=== PATIENT | male | born 1930 | race Caucasian/White ===

== ENCOUNTER → 2018-04-29 | Outpatient (CLI) | payer MEDICARE ==
[2015-11-30 11:13] VITALS: BMI 25.1
[~2018-04-29] MED LIST: ASPI81TA94 PO; CLOP75TA PO; FERR-53 PO; FURO-45 PO; LANS15CA32 PO; LISI2.5T60 PO; LOR5/325 PO; METO25TA23 PO; PRAV40TA78 PO; VALA100062 PO; no routine meds
--- NOTE | 2018-04-29 12:49 | RADIOLOGY IMAGING REPORT ---
FACILITY: [facility] - [place] PATIENT NAME: Rickey Snyder : 1930 MR: [id number] V: [id number] EXAM DATE: ORDERING PHYSICIAN: BORIS MARTINEZ TECHNOLOGIST: Location: [facility] - [place] Patient: Rickey Snyder : 1930 Visit/Account:[id number] Date of Sevice: 04/29/2018 2 VIEWS CHEST INDICATION: Evaluate for pneumonia, cough. COMPARISON: X-ray examination 07/20/2016 FINDINGS: There is a 3-lead left hemithorax pacer defibrillator. There is mild pulmonary hyperinflation without superimposed failure, infiltrate, effusion or pneumoth orax. No acute bony finding. IMPRESSION: 1. Pulmonary hyperinflation without acute finding Report Dictated By: Rk Rogel MD at 04/29/2018 12:45 PM Report E-Signed By: Rk Rogel MD at 04/29/2018 12:46 PM WSN:[email or web address]
== END ==
LOC: RAD 11:31
PROVIDERS: ATTEND Internal Medicine Cardiovascular Disease
DX: R91.8 Other nonspecific abnormal finding of lung field (principal); Z95.810 Presence of automatic (implantable) cardiac defibrillator
CPT/HCPCS: 71046

== ENCOUNTER 2019-01-08 14:36 | Emergency (ER) | payer OTHER, MEDICARE ==
[2015-11-30 11:13] VITALS: Wt 74.8 kg
--- NOTE | 2019-01-08 15:00 | ER Report ---
History and Physical Time Seen By MD: 15:00 HPI/ROS CHIEF COMPLAINT: low blood sugar, passed out while at [facility] HISTORY OF PRESENT ILLNESS: Patient is a 88 year old male presenting to the ED after passing out at [facility]. Patient was found to be wondering around the outside of [facility]. A bystander assisted the patient back inside. 911 was called. The ambulance found his blood sugar to be 60. Patient received some orange juice and sugar. Patient refused transport to the hospital. Patient came to the ED via personal car. Patient has abrasions on his left elbow and left shoulder. REVIEW OF SYSTEMS: Respiratory: No cough, no dyspnea. Cardiovascular: No chest pain, no palpitations. Gastrointestinal: No vomiting, no abdominal pain. Musculoskeletal: No back pain. Some pain to left elbow and left shoulder. Allergies: Coded Allergies: No Known Drug Allergies (Unverified , 02/21/16) Home Meds Reported Medications Lansoprazole (LANSOPRAZOLE) 15 Mg Capsule.dr, 30 MG PO QDAY 02/21/16 Ferrous Sulfate (FERROUS SULFATE) 325 Mg Tablet, 325 MG PO BID 02/21/16 Pravastatin Sodium (PRAVASTATIN SODIUM) 40 Mg Tablet, 40 MG PO DAILY 07/04/15 Lisinopril (LISINOPRIL) 2.5 Mg Tablet, 2.5 MG PO QDAY 07/04/15 Metoprolol Succinate (METOPROLOL SUCCINATE) 25 Mg Tab.er.24h, 1 TAB PO QDAY, TAB 07/04/15 Past Medical/Surgical History Patient has a past medical history of cardiac disease, GI bleed, torn right rotator cuff, arthritis, arm fracture at age 7, diabetes, and hernia. Patient araiza s a surgical history of siatic nerve surgery, right rotator cuff surgery, colonoscopy, hernia repair, CABG, and coronary stents Reviewed Nurses Notes: Yes Hx Smoking: No Smoking Status: Never Smoker Hx Substance Use Disorder: No Hx Alcohol Use: No Constitutional Vital Sign - Last 24 Hours 01/08/19 01/08/19 01/08/19 01/08/19 14:36 14:42 14:51 15:00 Temp 96.6 Pulse 66 65 Resp 14 B/P (MAP) 106/84 (91) 104/84 110/84 (93) Pulse Ox 92 O2 Delivery Room Air 01/08/19 01/08/19 15:06 16:00 Pulse 63 Resp 15 B/P (MAP) 135/60 (85) Pulse Ox 94 Physical Exam General Appearance: The patient is alert, has no immediate need for airway protection and no current signs of toxicity. Eyes: Pupils equal and round no injection. Respiratory: Chest is non tender, lungs are clear to auscultation. Cardiac: Rate irregular with occasional paced beats Gastrointestinal: Abdomen is soft and non tender, no masses, bowel sounds normal. Musculoskeletal: Neck: Neck is supple and non tender. Extremities have full range of motion and are non tender. Left shoulder and elbow tender to palpitation. Skin: 2 cm x 2 cm abrasion to left elbow. Small abrasion on left shoulder and upper arm. DIFFERENTIAL DIAGNOSIS: After history and physical exam differential diagnosis was considered for elbow fracture, hematoma, hypoglycemia. Medical Decision Making Data Points Result Diagram: 01/08/19 1512 01/08/19 1512 Laboratory Hematology Test 01/08/19 15:12 01/08/19 16:14 01/08/19 17:23 Red Blood Count 4.61 M/uL (4.00-5.60) Mean Corpuscular Volume 97.5 fL (80.0-96.0) Mean Corpuscular Hemoglobin 32.1 pg (26.0-33.0) Mean Corpuscular Hemoglobin Concent 33.0 g/dL (32.0-36.0) Red Cell Distribution Width 14.3 % (11.5-14.5) Mean Platelet Volume 9.2 fL (7.2-11.1) Neutrophils (%) (Auto) 82.4 % (39.4-72.5) Lymphocytes (%) (Auto) 13.3 % (17.6-49.6) Monocytes (%) (Auto) 3.6 % (4.1-12.4) Eosinophils (%) (Auto) 0.3 % (0.4-6.7) Basophils (%) (Auto) 0.4 % (0.3-1.4) Nucleated RBC Relative Count (auto) 0.0 /100WBC Neutrophils # (Auto) 11.9 K/uL (2.0-7.4) Lymphocytes # (Auto) 1.9 K/uL (1.3-3.6) Monocytes # (Auto) 0.5 K/uL (0.3-1.0) Eosinophils # (Auto) 0.0 K/uL (0.0-0.5) Basophils # (Auto) 0.1 K/uL (0.0-0.1) Nucleated RBC Absolute Count (auto) 0.01 K/uL Prothrombin Time 14.0 seconds (12.0-14.4) Prothromb Time International Ratio 1.07 Activated Partial Thromboplast Time 29 seconds (23-35) Sodium Level 143 mmol/L (137-145) Potassium Level 3.6 mmol/L (3.5-5.0) Chloride Level 109 mmol/L (98-107) Carbon Dioxide Level 24 mmol/L (22-30) Blood Urea Nitrogen 29 mg/dl (9-21) Creatinine 1.60 mg/dl (0.66-1.25) Glomerular Filtration Rate Calc 41.2 Random Glucose 118 mg/dl (75-110) Calcium Level 8.9 mg/dl (8.4-10.2) Total Bilirubin 1.2 mg/dl (0.2-1.3) Aspartate Amino Transf (AST/SGOT) 27 U/L (0-35) Alanine Aminotransferase (ALT/SGPT) 27 U/L (0-56) Alkaline Phosphatase 83 U/L (0-126) Total Protein 8.3 g/dl (6.3-8.2) Albumin 4.7 g/dl (3.5-5.0) Urine Color Yellow Urine Clarity Clear Urine pH 5.0 pH (4.8-9.5) Urine Specific Warren 1.017 Urine Protein Negative mg/dL (NEGATIVE) Urine Glucose (UA) Negative mg/dL (NEGATIVE) Urine Ketones Trace mg/dL (NEGATIVE) Urine Blood Negative (NEGATIVE) Urine Nitrite Negative (NEGATIVE) Urine Bilirubin Negative (NEGATIVE) Urine Urobilinogen Negative mg/dL (0.2-1.9) Urine Leukocyte Esterase Negative (NEGATIVE) Urine RBC <1 /HPF (0-2/HPF) Urine WBC 4 /HPF (0-5/HPF) Urine Squamous Epithelial Cells None /LPF (</=FEW) Urine Bacteria Negative /HPF (NONE-FEW) Urine Mucus None /HPF (NONE-FEW) Whole Blood Glucose 131 mg/DL (75-110) Chemistry Test 01/08/19 15:12 01/08/19 16:14 01/08/19 17:23 White Blood Count 14.4 k/uL (4.5-11.0) Red Blood Count 4.61 M/uL (4.00-5.60) Hemoglobin 14.8 g/dL (14.0-18.0) Hematocrit 44.9 % (42.0-52.0) Mean Corpuscular Volume 97.5 fL (80.0-96.0) Mean Corpuscular Hemoglobin 32.1 pg (26.0-33.0) Mean Corpuscular Hemoglobin Concent 33.0 g/dL (32.0-36.0) Red Cell Distribution Width 14.3 % (11.5-14.5) Platelet Count 201 K/uL (150-450) Mean Platelet Volume 9.2 fL (7.2-11.1) Neutrophils (%) (Auto) 82.4 % (39.4-72.5) Lymphocytes (%) (Auto) 13.3 % (17.6-49.6) Monocytes (%) (Auto) 3.6 % (4.1-12.4) Eosinophils (%) (Auto) 0.3 % (0.4-6.7) Basophils (%) (Auto) 0.4 % (0.3-1.4) Nucleated RBC Relative Count (auto) 0.0 /100WBC Neutrophils # (Auto) 11.9 K/uL (2.0-7.4) Lymphocytes # (Auto) 1.9 K/uL (1.3-3.6) Monocytes # (Auto) 0.5 K/uL (0.3-1.0) Eosinophils # (Auto) 0.0 K/uL (0.0-0.5) Basophils # (Auto) 0.1 K/uL (0.0-0.1) Nucleated RBC Absolute Count (auto) 0.01 K/uL Prothrombin Time 14.0 seconds (12.0-14.4) Prothromb Time International Ratio 1.07 Activated Partial Thromboplast Time 29 seconds (23-35) Glomerular Filtration Rate Calc 41.2 Calcium Level 8.9 mg/dl (8.4-10.2) Total Bilirubin 1.2 mg/dl (0.2-1.3) Aspartate Amino Transf (AST/SGOT) 27 U/L (0-35) Alanine Aminotransferase (ALT/SGPT) 27 U/L (0-56) Alkaline Phosphatase 83 U/L (0-126) Total Protein 8.3 g/dl (6.3-8.2) Albumin 4.7 g/dl (3.5-5.0) Urine Color Yellow Urine Clarity Clear Urine pH 5.0 pH (4.8-9.5) Urine Specific Warren 1.017 Urine Protein Negative mg/dL (NEGATIVE) Urine Glucose (UA) Negative mg/dL (NEGATIVE) Urine Ketones Trace mg/dL (NEGATIVE) Urine Blood Negative (NEGATIVE) Urine Nitrite Negative (NEGATIVE) Urine Bilirubin Negative (NEGATIVE) Urine Urobilinogen Negative mg/dL (0.2-1.9) Urine Leukocyte Esterase Negative (NEGATIVE) Urine RBC <1 /HPF (0-2/HPF) Urine WBC 4 /HPF (0-5/HPF) Urine Squamous Epithelial Cells None /LPF (</=FEW) Urine Bacteria Negative /HPF (NONE-FEW) Urine Mucus None /HPF (NONE-FEW) Whole Blood Glucose 131 mg/DL (75-110) Coagulation Test 01/08/19 15:12 Prothrombin Time 14.0 seconds Prothromb Time International Ratio 1.07 Activated Partial Thromboplast Time 29 seconds Urinalysis Test 01/08/19 16:14 Urine Color Yellow Urine Clarity Clear Urine pH 5.0 pH (4.8-9.5) Urine Specific Warren 1.017 Urine Protein Negative mg/dL (NEGATIVE) Urine Glucose (UA) Negative mg/dL (NEGATIVE) Urine Ketones Trace mg/dL (NEGATIVE) Urine Blood Negative (NEGATIVE) Urine Nitrite Negative (NEGATIVE) Urine Bilirubin Negative (NEGATIVE) Urine Urobilinogen Negative mg/dL (0.2-1.9) Urine Leukocyte Esterase Negative (NEGATIVE) Urine RBC <1 /HPF (0-2/HPF) Urine WBC 4 /HPF (0-5/HPF) Urine Squamous Epithelial Cells None /LPF (</=FEW) Urine Bacteria Negative /HPF (NONE-FEW) Urine Mucus None /HPF (NONE-FEW) EKG/Imaging Imaging Exam type: 3 views left elbow History: fall with pain Comparison: None. Findings: There is no acute fracture of the left elbow. Degenerative changes are noted. No appreciable elbow effusion. Soft tissues are unremarkable. IMPRESSION: 1. No acute fracture of the left elbow. 2. Osteoarthritis of the left elbow is noted. Report Dictated By: Perfecto Black MD at 01/08/2019 4:07 PM Report E-Signed By: Perfecto Black MD at 01/08/2019 4:08 PM Exam type: 3 views left shoulder History: fall with pain Comparison: 10/20/2016. Findings: There is no acute fracture or dislocation of left shoulder. Degenerative changes are noted involving the glenohumeral joint and AC joint. Acromion down slopes may predispose this patient to impingement. Patient is osteopenic. Pacemaker device overlies the left chest wall. Left lung apex is notable for calcified left hilar granulomas. IMPRESSION: 1. No acute fracture or dislocation of left shoulder. Report Dictated By: Perfecto Black MD at 01/08/2019 4:05 PM Report E-Signed By: Perfecto Black MD at 01/08/2019 4:07 PM EXAMINATION: CT HEAD AND CERVICAL SPINE WITHOUT CONTRAST COMPARISON: None available HISTORY: Syncope. Fall. PROCEDURE: Noncontrast CT from the vertex through the skull base and multiplanar noncontrast cervical spine. One of the following dose optimization techniques was utilized in the performance of this exam: Automated exposure control; adjustment of the mA and/or kV according to the patient's size; or use of an iterative reconstruction technique. Specific details can be referenced in the facility's radiology CT exam operational policy. FINDINGS: CT head without contrast: Brain volume: Age-appropriate. Hemorrhage/extra-axial fluid: None. Mass effect/midline shift/edema: None. Ischemia: Minimal chronic-appearing white matter change. No bunn-white dif ferentiation loss. Ventricles and basal cisterns: Within normal limits. Posterior fossa: Negative. Vessels: Atherosclerosis. Calvarium, skull base, and scalp: Left parietal scalp contusion. No fracture. Visualized sinuses and orbits: Within normal limits. CT cervical spine without contrast: Alignment: No acute malalignment. Minimal degenerative anterolisthesis at C4-C5. Cranio-cervical junction: Within normal limits. Vertebral bodies: Demineralization. No fracture. Posterior elements: Facet alignment is within normal limits with multilevel facet arthropathy as well as fusion of the C3-C4 left facet joint. No fracture. Disc spaces: C3-C4 advanced degenerative disc disease with partial fusion of the vertebral bodies. Moderately advanced degenerative changes also present at C5-C6 and C6-C7. Posterior disc and osteophyte complexes at these levels as well as at C2-C3 results in mild canal narrowing. Additionally, the combination of uncovertebral joint hypertrophy and facet arthropathy results in multilevel significant foraminal narrowing. Hardware: None. Soft tissues: No acute findings. Carotid atherosclerosis. Visualized upper chest: No acute findings. IMPRESSION: 1. No intracranial hemorrhage or mass effect. 2. No CT findings of acute ischemia. 3. Left parietal scalp contusion. 4. No cervical spine fracture or malalignment. 5. Cervical degenerative change as described above. 6. Carotid atherosclerosis. Report Dictated By: Urban Charlton MD at 01/08/2019 4:34 PM Report E-Signed By: Urban Charlton MD at 01/08/2019 4:45 PM ED Course/Re-evaluation ED Course Patient was admitted to the room and placed in the bed. History and physical was obtained. Differential diagnoses were considered. EKG was done. IV was placed and lab work obtained. Head CT ordered and obtained. X-rays of left elbow and shoulder were obtained. Results were discussed with the patient. We will go ahead and discharge patient home. He is believed that the likely cause was hypoglycemia. Patient did take his insulin this morning, and did not eat for several hours. With the imaging being negative as well as lab results being negative. We will go ahead and discharge him home. Patient states he feels fine at this time and denies any concerns. Patient and verbalized understanding and agreement with plan. We'll go ahead and follow-up with her primary care provider on as scheduled. Decision to Disposition Date: Jan 08, 2019 Decision to Disposition Time: 17:27 Depart Departure Latest Vital Signs Vital Signs Date Time Temp Pulse Resp B/P (MAP) Pulse Ox O2 Delivery O2 Flow Rate FiO2 01/08/19 16:00 135/60 (85) 01/08/19 15:06 63 15 94 01/08/19 14:51 96.6 Room Air Impression: Primary Impression: Hypoglycemia Additional Impression: Fall Condition: Improved Disposition: HOME OR SELF-CARE Referrals: JAQUELIN LOPEZ (PCP) Patient Instructions: Fall Prevention (ED), Hypoglycemia in a Person with Diabetes (ED) Additional Instructions: Go to your doctor's appointment on . Keep your glucose tablets in your pocket while you are at work. Continue to monitor your blood sugars. Have a high protein snack available when working. Problem Qualifiers Additional Impression: Fall Encounter type: initial encounter Qualified Codes: W19.XXXA - Unspecified fall, initial encounter OLE BHARDWAJ Jan 08, 2019 15:00
[2019-01-08] MEDS ORDERED: NS(*) 0.9% 500 ML BAG 500 ML IV ONE (15:01)
[2019-01-08 15:23] LABS: PLATELET COUNT, AUTOMATED 201 K/uL (150-450)
[2019-01-08 15:41] LABS: INR 1.07
[2019-01-08 16:00] VITALS: BP 135/60
--- NOTE | 2019-01-08 16:11 | RADIOLOGY IMAGING REPORT ---
FACILITY: [facility] PATIENT NAME: Rickey Snyder : 1930 MR: [id number] V: [id number] EXAM DATE: ORDERING PHYSICIAN: OLE BHARDWAJ TECHNOLOGIST: Location: [facility] [place] Patient: Rickey Snyder : 1930 Visit/Account:[id number] Date of Sevice: 01/08/2019 Exam type: 3 views left shoulder History: fall with pain Comparison: 10/20/2016. Findings: There is no acute fracture or dislocation of left shoulder. Degenerative changes are noted involving the glenohumeral joint and AC joint. Acromion down slopes may predispose this patient to impingemen t. Patient is osteopenic. Pacemaker device overlies the left chest wall. Left lung apex is notable for calcified left hilar gr anulomas. IMPRESSION: 1. No acute fracture or dislocation of left shoulder. Report Dictated By: Perfecto Black MD at 01/08/2019 4:05 PM Report E-Signed By: Perfecto Black MD at 01/08/2019 4:07 PM WSN:[email or web address]
--- NOTE | 2019-01-08 16:12 | RADIOLOGY IMAGING REPORT ---
FACILITY: [facility] PATIENT NAME: Rickey Snyder : 1930 MR: [id number] V: [id number] EXAM DATE: ORDERING PHYSICIAN: OLE BHARDWAJ TECHNOLOGIST: Location: [facility] [place] Patient: Rickey Snyder : 1930 Visit/Account:[id number] Date of Sevice: 01/08/2019 Exam type: 3 views left elbow History: fall with pain Comparison: None. Findings: There is no acute fracture of the left elbow. Degenerative changes are noted. No appreciable elbow effusion. Soft tissues are unremarkable. IMPRESSION: 1. No acute fracture of the left elbow. 2. Osteoarthritis of the left elbow is noted. Report Dictated By: Perfecto Black MD at 01/08/2019 4:07 PM Report E-Signed By: Perfecto Black MD at 01/08/2019 4:08 PM WSN:[id number]
[2019-01-08] MEDS ORDERED: DIPHTH/TETANUS/ACEL. PERTUSSIS IM ONLY ONE (16:20)
--- NOTE | 2019-01-08 16:49 | RADIOLOGY IMAGING REPORT ---
FACILITY: [facility] - [place] PATIENT NAME: Rickey Snyder : 1930 MR: [id number] V: [id number] EXAM DATE: ORDERING PHYSICIAN: OLE BHARDWAJ TECHNOLOGIST: Location: [facility] - [place] Patient: Rickey Snyder : 1930 Visit/Account:[id number] Date of Sevice: 01/08/2019 EXAMINATION: CT HEAD AND CERVICAL SPINE WITHOUT CONTRAST COMPARISON: None available HISTORY: Syncope. Fall. PROCEDURE: Noncontrast CT from the vertex through the skull base and multiplanar noncontrast cervical spine. One of the following dose optimization techniques was utilized in the performance of this exa m: Automated exposure control; adjustment of the mA and/or kV according to the patient's size; or use of an iterative reconstruction technique. Specific details can be referenced in the facility's [facility] CT exam operational policy. FINDINGS: CT head without contrast: Brain volume: Age-appropriate. Hemorrhage/extra-axial fluid: None. Mass effect/midline shift/edema: None. Ischemia: Minimal chronic-appearing white matter change. No bunn-white differentiation loss. Ventricles and basal cisterns: Within normal limits. Posterior fossa: Negative. Vessels: Atherosclerosis. Calvarium, skull base, and scalp: Left parietal scalp contusion. No fracture. Visualized sinuses and orbits: Within normal limits. CT cervical spine without contrast: Alignment: No acute malalignment. Minimal degenerative anterolisthesis at C4-C5. Cranio-cervical junction: Within normal limits. Vertebral bodies: Demineralization. No fracture. Posterior elements: Facet alignment is within normal limits with multilevel facet arthropathy as well as fusion of the C3-C4 left facet joint. No fracture. Disc spaces: C3-C4 advanced degenerative disc disease with partial fusion of the vertebral bodies. Mo derately advanced degenerative changes also present at C5-C6 and C6-C7. Posterior disc and osteophyte complexes at these levels as well as at C2-C3 results in mild canal narrowing. Additionally, the com bination of uncovertebral joint hypertrophy and facet arthropathy results in multilevel significant f oraminal narrowing. Hardware: None. Soft tissues: No acute findings. Carotid atherosclerosis. Visualized upper chest: No acute findings. IMPRESSION: 1. No intracranial hemorrhage or mass effect. 2. No CT findings of acute ischemia. 3. Left parietal scalp contusion. 4. No cervical spine fracture or malalignment. 5. Cervical degenerative change as described above. 6. Carotid atherosclerosis. Report Dictated By: Urban Charlton MD at 01/08/2019 4:34 PM Report E-Signed By: Urban Charlton MD at 01/08/2019 4:45 PM WSN:[id number]
--- NOTE | 2019-01-08 16:49 | RADIOLOGY IMAGING REPORT ---
FACILITY: [facility] PATIENT NAME: Rickey Snyder : 1930 MR: [id number] V: [id number] EXAM DATE: ORDERING PHYSICIAN: OLE BHARDWAJ TECHNOLOGIST: Location: [facility] Patient: Rickey Snyder : 1930 Visit/Account:[id number] Date of Sevice: 01/08/2019 EXAMINATION: CT HEAD AND CERVICAL SPINE WITHOUT CONTRAST COMPARISON: None available HISTORY: Syncope. Fall. PROCEDURE: Noncontrast CT from the vertex through the skull base and multiplanar noncontrast cervical spine. One of the following dose optimization techniques was utilized in the performance of this exa m: Automated exposure control; adjustment of the mA and/or kV according to the patient's size; or use of an iterative reconstruction technique. Specific details can be referenced in the facility's [facility] CT exam operational policy. FINDINGS: CT head without contrast: Brain volume: Age-appropriate. Hemorrhage/extra-axial fluid: None. Mass effect/midline shift/edema: None. Ischemia: Minimal chronic-appearing white matter change. No bunn-white differentiation loss. Ventricles and basal cisterns: Within normal limits. Posterior fossa: Negative. Vessels: Atherosclerosis. Calvarium, skull base, and scalp: Left parietal scalp contusion. No fracture. Visualized sinuses and orbits: Within normal limits. CT cervical spine without contrast: Alignment: No acute malalignment. Minimal degenerative anterolisthesis at C4-C5. Cranio-cervical junction: Within normal limits. Vertebral bodies: Demineralization. No fracture. Posterior elements: Facet alignment is within normal limits with multilevel facet arthropathy as well as fusion of the C3-C4 left facet joint. No fracture. Disc spaces: C3-C4 advanced degenerative disc disease with partial fusion of the vertebral bodies. Mo derately advanced degenerative changes also present at C5-C6 and C6-C7. Posterior disc and osteophyte complexes at these levels as well as at C2-C3 results in mild canal narrowing. Additionally, the com bination of uncovertebral joint hypertrophy and facet arthropathy results in multilevel significant f oraminal narrowing. Hardware: None. Soft tissues: No acute findings. Carotid atherosclerosis. Visualized upper chest: No acute findings. IMPRESSION: 1. No intracranial hemorrhage or mass effect. 2. No CT findings of acute ischemia. 3. Left parietal scalp contusion. 4. No cervical spine fracture or malalignment. 5. Cervical degenerative change as described above. 6. Carotid atherosclerosis. Report Dictated By: Urban Charlton MD at 01/08/2019 4:34 PM Report E-Signed By: Urban Charlton MD at 01/08/2019 4:45 PM WSN:[id number]
--- NOTE | 2019-01-08 18:29 | EKG ---
FACILITY: [facility] - [place] PATIENT NAME: VELMA ESCAMILLA : [id number] MR: [id number] V: [id number] EXAM DATE: ORDERING PHYSICIAN: OLE BHARDWAJ TECHNOLOGIST: KIMBERLY Test Reason : SYNCOPE Blood Pressure : / mmHG Vent. Rate : 061 BPM Atrial Rate : 312 BPM P-R Int : 000 ms QRS Dur : 164 ms QT Int : 568 ms P-R-T Axes : 000 -50 164 degrees QTc Int : 571 ms Demand pacemaker, interpretation is based on intrinsic rhythm Wide QRS rhythm with premature ventricular complexes or fusion complexes Left axis deviation Left ventricular hypertrophy with QRS widening and repolarization abnormality Abnormal ECG When compared with ECG of 29-NOV-2015 08:26, Wide QRS rhythm has replaced Sinus rhythm Confirmed by TIM WEATHERS ([id number]) on 01/08/2019 8:39:45 PM Referred By: BENTON Confirmed By:TIM WEATHERS
== END 2019-01-08 17:37 | disposition home or self-care (01) ==
LOC: ER 14:50
DX: E11.649 Type 2 diabetes mellitus with hypoglycemia without coma (principal); R55 Syncope and collapse; Z95.1 Presence of aortocoronary bypass graft
CPT/HCPCS: 36416; 70450; 72125; 73030; 73080; 81001; 82948; 85025; 85610; 85730; 87088; 90471; 90715; 93005; 99284; J7040; 82040; 82247; 82310; 82374; 82435; 82565; 82947; 84075; 84132; 84155; 84295; 84450; 84460; 84520